=== PATIENT | female | born 1995 | race African-American/Black ===

== ENCOUNTER 2019-05-18 19:36 | Emergency (ER) | payer BC ==
[2019-05-18 20:52] LABS: Pregnancy Test - Urine (BHCG) Negative (Negative); Pregu Control Background? CLEAR/WHITE (CLR/WHITE); Pregu Control Bar Appear? YES (CONTROL BAR); Specific Gravity 1.032 (1.002-1.036)
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
--- NOTE | 2019-05-18 21:55 | RAD ---
XR Hand Rt 3 View STANDARD HISTORY: Right hand injury. COMPARISON: None. FINDINGS: There are no signs of fracture or dislocation. IMPRESSION: Negative right hand.
== END 2019-05-18 22:30 | disposition home or self-care (01) ==
LOC: ERS 19:36
DX: S09.90XA Unspecified injury of head, initial encounter (principal); M79.644 Pain in right finger(s); M79.604 Pain in right leg; M54.9 Dorsalgia, unspecified; V89.2XXA Person injured in unspecified motor-vehicle accident, traffic, initial encounter
CPT/HCPCS: 70450; 81025

== ENCOUNTER 2020-05-14 09:32 | Outpatient (CLI) | payer OTHER ==
--- NOTE | 2020-05-14 16:04 | MRI ---
MRI OF THE LEFT SHOULDER: 05/14/20 PROVIDED CLINICAL HISTORY: Pain. FINDINGS: The components of the rotator cuff appear intact. The long head biceps tendon appears intact and norm ally located. The glenoid labrum and glenohumeral articular cartilage are suboptimally evaluated in the absence of joint distention but appear grossly normal. The amount of fluid within the glenohumeral joint appears physiologic. There is no significant subacromial subdeltoid bursal fluid evident. The acromioclavicular joint appe ars unremarkable. No focal concerning regional marrow or muscular signal abnormality is evident. IMPRESSION: No evidence for internal derangement. POS: [facility]
== END 2020-05-14 09:33 | disposition home or self-care (01) ==
LOC: BICMRI 09:32
PROVIDERS: ATTEND Family Medicine
DX: S46.912D Strain of unspecified muscle, fascia and tendon at shoulder and upper arm level, left arm, subsequent encounter (principal)

== ENCOUNTER 2020-07-31 08:20 | Outpatient (CLI) | payer OTHER ==
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
== END 2020-07-31 08:21 | disposition home or self-care (01) ==
LOC: BICMRI 08:20
PROVIDERS: ATTEND Family Medicine
DX: S46.812D Strain of other muscles, fascia and tendons at shoulder and upper arm level, left arm, subsequent encounter (principal)
CPT/HCPCS: 70540